=== PATIENT | female | born 1965 | race Caucasian/White ===

== ENCOUNTER 2022-11-09 15:58 | Outpatient (CLI) | payer OTHER, SELFPAY | END 2022-11-09 15:59 | disposition home or self-care (01) | LOC: NFLDREF 11-11 14:46 | PROVIDERS: Visit Provider Physician Assistant | DX: R30.0 Dysuria (principal); N30.80 Other cystitis without hematuria; B96.89 Other specified bacterial agents as the cause of diseases classified elsewhere; N30.90 Cystitis, unspecified without hematuria | CPT/HCPCS: 87086; 87186 ==

== ENCOUNTER 2023-05-06 07:14 | Outpatient (CLI) | payer OTHER, SELFPAY ==
--- NOTE | 2023-05-06 07:15 | MR_ITS ---
Patient: JOSE GALEANA Facility:?[facility] Patient ID:?[id number] Site Patient ID:?[id number]. Site :?[id number] Study:?MRI-Breast W/ and W/O Cont 20 CC DOATERM-05/06/2023 8:53:46 AM Ordering Physician:?HIEN FLOOD Final Report: BILATERAL BREAST MRI WITHOUT AND WITH GADOLINIUM 05/06/2023 CLINICAL HISTORY: 58-year-old female with RIGHT breast thickening, recent mammogram and ultrasound were negative. INDICATION FOR BREAST MRI: Problem-solving breast MRI. COMPARISON STUDIES: Mammogram and RIGHT breast ultrasound 05/03/2023, mammogram 10/02/2022, no prior breast MRI is available for comparison. CONTRAST: 20 cc of dotarem TECHNIQUE: The patient was positioned prone using a breast coil. Multiple imaging sequences were obtained using 1-1.5 mm thick slices with no gap. The image sequences include T2-weighted STIR in the axial plane, T1-weighted nonfat-saturated gradient echo in the axial plane, pre- and post-contrast T1-weighted FLASH 3D with fat suppression in the axial plane, and T1-weighted FLASH high resolution 3D with fat suppression in the sagittal plane. Image post-processing was performed on a 4th aspect workstation. Complex 3D rendering including maximum intensity projections (MIPS) and volumetric renderings were obtained to optimize visualization of the extent of pathology and relationship to the nipple, skin, and chest wall. This aids in determining feasibility of breast conservation surgery. Subtraction, multiplanar reconstruction, mean curve determination, and angiogenesis mapping were also performed. The study was technically adequate. FINDINGS: Amount of Fibroglandular Tissue: Scattered fibroglandular tissue. Breast Background Enhancement: Minimal. RIGHT Breast: No suspicious areas of enhancement. LEFT Breast: No suspicious areas of enhancement. Lymph Nodes: No adenopathy. Other Findings: None. IMPRESSIONS AND RECOMMENDATIONS: Negative, there is no MRI evidence of malignancy. Clinical follow-up is recommended. Otherwise continue annual screening mammography. BI-RADS Category 1: Negative Dictated by Yanira Puga MD @ 05/07/2023 9:58:43 AM CRL/djw DW/Dictated by: Yanira Puga MD @ 05/07/2023 9:59:00 AM Signed by:?Yanira Puga MD @05/07/2023 1:25:42 PM (Electronic Signature)
== END 2023-05-06 07:15 | disposition home or self-care (01) ==
LOC: MRI 07:15
PROVIDERS: PCP Physician Assistant; Visit Provider Physician Assistant
DX: N63.11 Unspecified lump in the right breast, upper outer quadrant (principal)
CPT/HCPCS: 77049; A9575